=== PATIENT | male | born 1965 | race Caucasian/White ===

== ENCOUNTER → 2017-07-17 09:18 | Outpatient (CLI) | payer OTHER, SELFPAY ==
[2017-07-17 12:29] LABS: Absolute Lymphocyte Count 1.73 X10^3/ul (0.83-4.51); Basophil# 0.03 X10^3/uL; Basophil% 0.5 % (0-1); Eosinophil# 0.22 X10^3/uL; Eosinophils% 3.4 % (0-5); Hematocrit 40.7 % (40-54); Hemoglobin 13.8 g/dl (13.0-16.5); Lymphocyte # 1.73 X10^3/ul (4.0); Lymphocyte % 26.5 % (19-41); Mean Corp Hgb Conc 33.9 g/gl (32-36); Mean Corpuscular Hgb 30.9 pg (27.0-32.0); Mean Corpuscular Volume 91.1 fL (80-94); Monocyte# 0.56 X10^3/uL; Monocyte% 8.6 % (0-10); Neutrophil # 3.99 X10^3/uL (2.7-7.7); Neutrophil % 60.8 % (47-70); Platelet Count 307 K/mm3 (150-450); RBC Distribution Width CV 13.5 % (11.6-14.6); RBC Distribution Width SD 44.3 fl (35.1-43.9); Red Blood Count 4.47 M/mm3 (4.6-6.2); White Blood Count 6.5 K/mm3 (4.4-11.0)
[2017-07-17 12:30] LABS: Color, Urine Yellow (Yellow); Glucose, Dipstick Normal (Normal); Ketone-Dipstick Negative (Negative); Leukocyte Esterase-Dipstick Negative /ul (Negative); Nitrite-Dipstick Negative (Negative); Occult Blood-Urine Negative /ul (Negative); Protein-Dipstick Negative (Negative); Specific Gravity, Urine 1.015 (1.002-1.030); Urine Bilirubin Dipstick Negative (Negative); Urine Clarity Sl. Cloudy (Clear); Urine Urobilinogen Normal (Normal)
[2017-07-17 12:33] LABS: POSITIVE COUNT NO; POSITIVE DIFFERENTIAL NO; POSITIVE MORPHOLOGY NO
[2017-07-17 12:51] LABS: ALB/GLOB Ratio 1.1 RATIO (0.9-2.4); AST(SGOT) 17 U/L (15-37); Alanine Aminotransfer ALT/SGPT 28 U/L (16-61); Albumin, Serum 3.9 g/dL (3.2-5.0); Alkaline Phosphatase 85 U/L (45-117); Anion Gap 10 (5-15); BUN 15 mg/dL (7-18); BUN/Creat Ratio 15.7 RATIO (10-20); Calcium,Total 8.7 mg/dL (8.5-10.1); Chloride 108 mmol/L (98-107); Cholesterol 190 mg/dL (200); Creatinine, Serum 0.96 mg/dL (0.70-1.30); EST Glomerular Filtration Rate 88 mL/min (>60); Est Glom Filt Rate - Afr Amer 107 mL/min (>60); Globulin 3.5 g/dL (2.2-4.2); Glucose 81 mg/dL (74-106); High Density Lipoprotein 57 mg/dL; PSA,Total - Annual Screen 1.09 ng/mL (0.00-4.00); Potassium 3.9 mmol/L (3.5-5.1); Protein, Total 7.4 g/dL (6.4-8.2); Sodium Level 143 mmol/L (136-145); Triglycerides 50 mg/dL; Very Low Density Lipoprotein 10 mg/dL (5-40)
[2017-07-18 09:31] LABS: Vitamin B12 1823 pg/mL (211-911); Vitamin D,25 Hydroxy 30.7 ng/mL (29.95-100.01)
== END ==
PROVIDERS: Family Provider Family Medicine; PCP Family Medicine; Visit Provider Family Medicine
DX: Z00.00 Encounter for general adult medical examination without abnormal findings (principal); Z12.5 Encounter for screening for malignant neoplasm of prostate; E55.9 Vitamin D deficiency, unspecified; E53.8 Deficiency of other specified B group vitamins
CPT/HCPCS: 36415; 80053; 80061; 81002; 82306; 82607; 84153; 85025; G0103

== ENCOUNTER → 2019-09-16 11:11 | Outpatient (CLI) | payer OTHER, SELFPAY ==
[2017-06-20 13:05] VITALS: BMI 32.5
--- NOTE | 2019-09-16 | IMM_PTH ---
PATIENT: PERLA HERNANDEZ Jr. LOC: [facility] U#:[id number] AGE/SX: 59/M ROOM: RE09/16/[address]: Dr. Christopher Sanchez MD : 1965 BED: DIS: SPEC #: [id number] RECD: 09/17/19 12:58 STATUS: ELINOR REQ #: [id number] MARCOS: 09/16/19 00:[address]: Christopher Sanchez DEPT: IMMUNOHISTOCHEMISTRY RECD BY: Dorita Garcia ENTERED: 09/17/19 13:00 SP TYPE: IMMUNO OTHR DR: Dr. Thaddeus Guillaume MD Tissues: A - PROSTATE RIGHT Procedures: P40 (add) 34BE12 (initial) PHYSICIAN & INSTITUTION [place] [address] SPECIMEN INFORMATION: Tissue Source: A - Right prostate, apex, core biopsy Clinical Info: Elevated PSA Specimen Number: [id number] CPT code: 14077, 16204 METHODOLOGY: Deparaffinized sections of prefer/formalin-fixed tissue or PAP/DQ stained slides are incubated with monoclonal/polyclonal antibodies/oligonucleotide probes. Localization is made via biotin free immunoperoxidase method. Appropriate controls are performed and reacted as expected. Results on target cell population are indicated in the following table: RESULTS: ANTIBODY / CLONE RESULT Block A P40 (BC28) negative 34BE12 (34BE12) negative These tests were developed and their performance characteristics determined by [facility]. They may not have been cleared or approved by the U.S. Food and Drug Administration. The FDA has determined that such clearance or approval is not necessary. The above immunohistochemical/dualISH markers are ordered and reviewed by the Pathologist. INTERPRETATION: A. Right prostate, apex, core biopsy: Adenocarcinoma. OCTAVIA:davie 09/18/19
--- NOTE | 2019-09-16 08:00 | PROSBIL_PTH ---
PATIENT: PERLA HERNANDEZ Jr. LOC: [facility] U#:[id number] AGE/SX: 59/M ROOM: RE09/16/[address]: Dr. Christopher Sanchez MD : 1965 BED: DIS: SPEC #: [id number] RECD: 09/16/19 10:40 STATUS: ELINOR HANK #: [id number] MARCOS: 09/16/19 08:[address]: Christopher Sanchez DEPT: SURGICAL PATHOLOGY RECD BY: Chip Bain ENTERED: 09/16/19 11:51 SP TYPE: PROST BX CRYSTAL DR: Dr. Thaddeus Guillaume MD Tissues: A - PROSTATE RIGHT B - PROSTATE RIGHT C - PROSTATE RIGHT D - PROSTATE LEFT E - PROSTATE LEFT F - PROSTATE LEFT Procedures: PROSTATE BX HEADER OPERATION: Prostate biopsy PRE-OP DIAGNOSIS: Elevated PSA TISSUE SUBMITTED: A - Right apex, B - Right mid, C - Right base, D - Left apex, E - Left mid, F - Left base MICROSCOPIC DIAGNOSIS A. Right prostate, apex, core biopsy: Prostatic adenocarcinoma. Bruning grade: 3+3=6 Number of cores involved: 1/1 Proportion of tissue involved: ~5% Perineural invasion: Not identified. Greatest tumor length: 0.1 cm See comment. B. Right prostate, mid, core biopsy: Prostatic tissue, negative for malignancy. C. Right prostate, base, core biopsy: Prostatic tissue, negative for malignancy. D. Left prostate, apex, core biopsy: Prostatic tissue, negative for malignancy. E. Left prostate, mid, core biopsy: Focal high-grade prostatic intraepithelial neoplasia (HGPIN). F. Left prostate, base, core biopsy: Prostatic tissue, negative for malignancy. SJ:davie 09/18/19 COMMENT A. Immunohistochemistry ([id number]) supports the above diagnosis. Case has been reviewed in consultation with Dr. Barcenas who concurs with the above diagnosis. IDC:AM MICROSCOPIC DESCRIPTION Slides are reviewed. GROSS DESCRIPTION A - Received is one container designated prostate, right apex. The specimen consists of one elongated fragment of light marshall-white soft tissue measuring 1.2 cm in length and 0.1 cm in diameter. The specimen is totally submitted in one cassette. B - Received is one container designated prostate, right mid. The specimen consists of two elongated fragments of light marshall-white soft tissue measuring 1 and 1.4 cm in length and 0.1 cm in diameter. The specimen is totally submitted in one cassette. C - Received is one container designated prostate, right base. The specimen consists of two elongated fragments of light marshall-white soft tissue measuring 1 and 1.4 cm in length and 0.1 cm in diameter. The specimen is totally submitted in one cassette. D - Received is one container designated prostate, left apex. The specimen consists of one elongated fragment of light marshall-white soft tissue measuring 1.2 cm in length and 0.1 cm in diameter. The specimen is totally submitted in one cassette. E - Received is one container designated prostate, left mid. The specimen consists of two elongated fragments of light marshall-white soft tissue measuring 1 and 1.4 cm in length and 0.1 cm in diameter. The specimen is totally submitted in one cassette. F - Received is one container designated prostate, left base. The specimen consists of two elongated fragments of light marshall-white soft tissue measuring 1 and 1.2 cm in length and 0.1 cm in diameter. The specimen is totally submitted in one cassette. / SJ:rg 09/16/19 TC:0 CPT: 79315 x6
== END ==
PROVIDERS: PCP Family Medicine; Referring Provider Urology; Visit Provider Urology
DX: R97.20 Elevated prostate specific antigen [PSA] (principal)
CPT/HCPCS: 88305; 88341; 88342; G0416

== ENCOUNTER 2019-10-29 05:50 | Day surgery (SDC) | payer OTHER, SELFPAY ==
--- NOTE | 2019-10-23 15:46 | EKG12_ITS ---
Test Reason : PREOP Blood Pressure : / mmHG Vent. Rate : 061 BPM Atrial Rate : 061 BPM P-R Int : 164 ms QRS Dur : 092 ms QT Int : 416 ms P-R-T Axes : 054 035 027 degrees QTc Int : 418 ms Normal sinus rhythm Normal ECG Confirmed by JESS SMALL, DEE ([id number]), market editor OSVALDO BREWER ([id number]) on 10/27/2019 9:31:19 AM Referred By: Christopher Sanchez Confirmed By:MANI MERCADO MD
[2019-10-23 16:22] LABS: Hematocrit 40.8 % (40-54); Hemoglobin 13.4 g/dL (13.0-16.5); Mean Corp Hgb Conc 32.8 g/dL (32-36); Mean Corpuscular Hgb 30.6 pg (27.0-32.0); Mean Corpuscular Volume 93.2 fL (80-94); Mean Platelet Vol. 10.3 fl (6.2-12.0); Platelet Count 317 K/mm3 (150-450); RBC Distribution Width CV 13.2 % (11.6-14.6); RBC Distribution Width SD 45.6 fl (35.1-43.9); Red Blood Count 4.38 M/mm3 (4.6-6.2); White Blood Count 6.6 K/mm3 (4.4-11.0)
[2019-10-29] VITALS (9 sets, daily range): BP systolic 110–148; BP diastolic 70–99; PULSE 60–86; RESP 16–18; TEMP 36.1–37.5; O2SAT 92–97; BMI 33.1
--- NOTE | 2019-10-29 | IMM_PTH ---
PATIENT: PERLA HERNANDEZ Jr. [place] [facility] [place][id number] AGE/SX: 53/M ROOM: RE10/29/[address]: Dr. Christopher Sanchez MD : 1965 BED: DIS: 10/30/2019 SPEC #: [id number] RECD: 10/31/19 12:35 STATUS: ELINOR REQ #: [id number] MARCOS: 10/29/19 00:[address]: Christopher Sanchez DEPT: IMMUNOHISTOCHEMISTRY RECD BY: Dorita Garcia ENTERED: 10/31/19 12:36 SP TYPE: IMMUNO OTHR DR: Dr. Thaddeus Guillaume MD Tissues: Prostate, NOS Procedures: 34BE12 (add) P40 (add) 34BE12 (initial) PHYSICIAN & INSTITUTION [place] [address] SPECIMEN INFORMATION: Tissue Source: Prostate Clinical Info: Prostate cancer Specimen Number: [id number] #11, 14 & 19 CPT code: 51897, 17144 x5 METHODOLOGY: Deparaffinized sections of prefer/formalin-fixed tissue or PAP/DQ stained slides are incubated with monoclonal/polyclonal antibodies/oligonucleotide probes. Localization is made via biotin free immunoperoxidase method. Appropriate controls are performed and reacted as expected. Results on target cell population are indicated in the following table: RESULTS: ANTIBODY / CLONE RESULT Block 11 34BE12 (34BE12) positive P40 (BC28) positive Block 14 34BE12 (34BE12) negative P40 (BC28) negative Block 19 34BE12 (34BE12) negative P40 (BC28) negative These tests were developed and their performance characteristics determined by [facility]. They may not have been cleared or approved by the U.S. Food and Drug Administration. The FDA has determined that such clearance or approval is not necessary. The above immunohistochemical/dualISH markers are ordered and reviewed by the Pathologist. INTERPRETATION: Prostate, prostatectomy: Adenocarcinoma. AM:davie 11/03/19 Case has been reviewed in consultation with Dr. Gustafson who concurs with the above diagnosis. IDC:OCTAVIA
[2019-10-29] MEDS: Lactated Ringers 1,000 ML 100 ML IV ×2 (07:07→17:11)
[2019-10-29] MEDS: Lactated Ringers 1,000 ML 15 ML IV (07:10)
--- NOTE | 2019-10-29 07:19 | HP.PCM_ITS ---
History of Present Illness Date of Admission: 10/29/19 Chief Complaint: Prostate cancer The patient is a 53 year old male with a history of prostate cancer [place] 6 disease given his young age and long life expectancy he is elected to undergo a radical prostatectomy with nerve sparing. Past Medical History Allergies bee venom protein (honey bee) Allergy (Severe, Verified 10/20/19 15:03) Anaphylaxis Home Medications: Ambulatory Orders Medication Instructions Recorded NK 10/20/19 Surgical History: no surgical history Smoking Status: Former smoker Tobacco Use: Non-smoker Review of Systems Constitutional: Denies: Chills, Fever, Weight Change HEENT: Denies: Head Aches, Sinus Congestion, Sinus Drainage Cardiovascular: Denies: Chest Pain, Palpitations Respiratory: Denies: Cough, Shortness of breath at rest, Sputum production Gastrointestinal: Denies: Abdominal Pain, Nausea, Vomiting Genitourinary: Denies: Dysuria Musculoskeletal: Denies: Joint Pain, Joint Tenderness Skin: Denies: Rash, Wounds Neurological: Denies: Numbness, Tingling, Focal weakness Psychiatric: Denies: Anxiety, Depression, Homicidal Ideations, Suicidal Ideations Hematologic/ Lymphatic: Denies: Easy Bruising, Easy Bleeding VTE Information - Inpt Only VTE Present on Admission: No - Physical Exam Vitals/I&O's: Vital Signs Temp Pulse Resp BP Pulse Ox 99.5 F H 60 16 148/81 H 94 10/29/19 06:24 10/29/19 06:24 10/29/19 06:24 10/29/19 06:24 10/29/19 06:24 Oxygen Delivery Method Room Air Weight: 98.8 kg Body Mass Index (BMI) 33.1 General: Alert, Oriented x3, Cooperative HEENT: Atraumatic, PERRLA, EOMI, Normocephalic Neck: Supple, No JVD, Negative Carotid Bruits Lungs: Clear to auscultation, Normal air movement Cardiovascular: Regular rate, No murmurs Abdomen: Bowel Sounds Present, Soft, Non Tender Extremities: No edema, Capillary Refill Less than 3 Seconds Skin: No rashes, No breakdown Musculoskeletal: No Tenderness to Palpation of Joints or Extremities Neurological: Cranial nerves II-XII grossly intact Psych/Mental Status: Normal Affect, Appropriate Current Medications Cefazolin Sodium 2 gm/ Sodium (Chloride) 110 mls @ 150 mls/hr IV PREOP ONE Stop: 10/29/19 08:13 Lactated Ringer's () 1,000 mls @ 100 mls/hr IV .Q10H LOPEZ Last Admin: 10/29/19 07:07 Dose: 100 mls/hr Documented by: Lactated Ringer's () 1,000 mls @ 15 mls/hr IV .Q48H LOPEZ Assessment/Plan All Active Problems (Last Reviewed 06/20/17 @ 13:07 by Jennifer Covarrubias) Influenza B (Acute) Plan to proceed with radical prostatectomy bilateral nerve sparing.
[2019-10-29] MEDS: Cefazolin 2 GM in 0.9% Normal Saline 100 ML IV (07:22)
--- NOTE | 2019-10-29 07:23 | DCINST_ITS ---
Discharge Diet: Light diet - advance as tolerated Discharge Activity: May Not Drive, May not drive while taking narcotic pain medications. May resume sexual activity in: 6 weeks Call your doctor if your incision/area has: Continuous Slow Oozing, Sudden Increased Bleeding, Increased Pain/ Swelling, Increased Redness, Foul Smelling Discharge, Swelling at the incision site Call your doctor if you observe: Fever of 101 or Higher Suture Line Care: Avoid Pulling/Pushing, Avoid Pinching/Bending Catheter: Gabriel to leg bag, Gabriel to large bag Drain: [place] Allergies/Adverse Reactions: Allergies bee venom protein (honey bee) Allergy (Severe, Verified 10/20/19 15:03) Anaphylaxis Medications to take at Discharge Ciprofloxacin [Cipro] 500 mg PO BID #20 tab 10/29/19 Docusate Sodium [Colace] 100 mg PO BID #20 cap 10/29/19 Hydrocodone/Acetaminophen [[place] 5-325 Tablet] 1 each PO Q4H PRN PRN 5 Days #14 tablet 10/29/19 The following prescriptions were given: Ciprofloxacin [Cipro] 500 mg PO BID #20 tab Transmission Status: Pending to [address] Docusate Sodium [Colace] 100 mg PO BID #20 cap Transmission Status: Pending to [address] Hydrocodone/Acetaminophen [[place] 5-325 Tablet] 1 each PO Q4H PRN PRN 5 Days #14 tablet PRN Reason: Pain Score 1-10/10 Transmission Status: Received by [address] Primary Care Physician: Thaddeus Guillaume MD [Primary Care Provider] - Test Results: Test results from this visit will be discussed in further detail at your follow- up appointment, if applicable. Please Follow Up With: Christopher Sanchez MD When: in 2 weeks, please call to make an appointment. Proposed Discharge Date: 10/30/19
--- NOTE | 2019-10-29 07:30 | PROST_PTH ---
PATIENT: PERLA HERNANDEZ Jr. [place] [facility] [place][id number] AGE/SX: 53/M ROOM: RE10/29/[address]: Dr. Christopher Sanchez MD : 1965 BED: DIS: 10/30/2019 SPEC #: [id number] RECD: 10/29/19 11:17 STATUS: ELINOR REKelvin #: [id number] MARCOS: 10/29/19 07:[address]: Christopher Sanchez DEPT: SURGICAL PATHOLOGY RECD BY: Chip Bain ENTERED: 10/29/19 11:29 SP TYPE: PROSTATE OTHR DR: Dr. Thaddeus Guillaume MD Tissues: Prostate, NOS Procedures: Surgery Specimen Level HEADER OPERATION: Lap robotic prostatectomy PRE-OP DIAGNOSIS: Prostate cancer TISSUE SUBMITTED: Prostate MICROSCOPIC DIAGNOSIS Prostate, radical prostatectomy: Adenocarcinoma. See cancer checklist below. AM:davie 11/03/19 COMMENT PROSTATE CANCER (RADICAL) SUMMARY: Procedure: Radical Prostatectomy Prostate Size: Weight: 44 gm Size: 4 x 3.5 x 3 cm Histologic type: Adenocarcinoma Histologic grade: 6 (3+3) Percent of Pattern 4: 0 Percent of Pattern 5: 0 Intraductal Carcinoma: Not identified Tumor Quantitation: 6 x 3 x 2 mm (from glass slides) Extraprostatic Extension: Not identified Urinary Bladder Neck Invasion: Not present Seminal Vesicle Invasion: Not present Lymphvascular Invasion: Not identified Perineural Invasion: Not identified Margins: Free of carcinoma Regional Lymph Nodes: No lymph nodes submitted. Treatment Effect: Unknown Additional Pathologic Findings: Benign nodular hyperplasia and minimal chronic inflammation. PATHOLOGIC STAGE: pT2 Nx Mx The above summary is in compliance with [employer] (CAP) Cancer Protocols Checklist and [place] Joint Committee on Cancer (AJCC), Staging Manual, 8th Ed. Immunohistochemistry ([id number]) supports the above diagnosis. Case has been reviewed in consultation with Dr. Gustafson who concurs with the above diagnosis. IDC:SJ MICROSCOPIC DESCRIPTION Slides are reviewed. GROSS DESCRIPTION Received in fixative is one container labeled with the patient's name and designated prostate. The specimen consists of a radical prostatectomy specimen consisting of prostate including bilateral seminal vesicles and vas deferens. The entire specimen weighs 44 gm. The prostate measures 3 cm craniocaudally, 4 cm transversely and 3.5 cm anterior-posteriorly. The right seminal vesicle measures 2.5 x 2 x 0.8 cm and right vas deferens measure 2.5 cm in length and 0.5 cm in diameter. The left seminal vesicle measures 2.5 x 2 x 0.8 cm and left vas deferens measure 2.5 cm in length and 0.5 cm in diameter. The specimen is inked as follows: anterior surface - yellow, posterior surface - black, right lateral surface - blue, left lateral surface - green. Bilateral seminal vesicles and vas deferens are inked as follows: posterior surface - black, anterior surface right seminal vesicle and vas deferens - blue, anterior surface left seminal vesicle and vas deferens - green. Sections do not reveal any obvious mass lesion. [employer] sections are submitted in 20 cassettes as follows: 1 - right seminal vesicle and vas deferens, 2 - left seminal vesicle and vas deferens, 3 - apical (urethral) margin, enface, 4 - bladder face margin, enface, 5 - most basal portion of the prostate, 6-10 - apical portion of prostate, 1114 - middle portion prostate, 15-20 - basal portion prostate. About 90% of the prostate is submitted. / OCTAVIA:davie 10/31/19 TC:0 CPT: 60989
[2019-10-29] MEDS: Bupivacaine Mpf 0.5% 30 ML VIAL (08:00)
--- NOTE | 2019-10-29 11:02 | PCM.OPRPT ---
Report of Operation Date of Procedure: 10/29/19 Pre-Operative Diagnosis: Prostate cancer Post-Operative Diagnosis: Same Surgery/Procedure Performed:: Radical prostatectomy bilateral nerve sparing Description of Surgical Findings:: 53-year-old male with [place] 6 prostate cancer presents for treatment of his cancer with radical prostatectomy, patient was taken back to the operating room to smooth induction of general anesthesia was placed upon the table, the abdomen shaved prepped and draped in usual sterile fashion placed a Gabriel catheter into the bladder. I then docked the ports for the robot. Started dissection posterior to the bladder dissected out the left seminal vesicle left vas deferens and the right seminal vesicle right vas deferens dissected posterior to the prostate and the bladder above the Denonvilliers' fascia and then pulled out of the pelvis we drop the bladder created the space of Retzius I then freed up the endopelvic fascia in the right light left side of the prostate we placed a stitch in the dorsal vein complex and then pulled back to the prostate and bladder junction and dissected between the bladder and the bladder neck junction down to the catheter and then the catheter was pulled back and then I dissected between the prostate and the bladder posteriorly until we reached the seminal vesicles and vas deferens. The prostate was placed on lateral traction I then released the neurovascular bundle in the right side of the prostate came through the clips with the pedicle and release the neurovascular bundle all the way up to the apex and the right side very nicely went to the left side we need release neurovascular bundle in the left side of the prostate came to the pedicle with clips and release of vascular bundle all the way up to the left side and then came across the dorsal vein complex dissected the urethra circumferentially and then transected through the urethra the prostate was removed put an Endo Catch bag I then performed an anastomosis between the bladder neck which was normal quite small opening into the urethra over a catheter once this was completed we flushed the catheter we extracted the prostate through the umbilical site and closed the 1012 trocar with a Eddie Yañez stitch patient's anesthetic is being reversed it was a nice complete dissection and removal of the prostate with good nerve and the nerve sparing on both the left and right sides of the prostate. Patient is currently being reversed from anesthesia. Type of Anesthesia:: General Drains: Gabriel. - Admit VTE Documentation VTE Present on Admission: No VTE Mechan Device Prophylaxis: SCD's
[2019-10-29] MEDS: Ondansetron 4 MG/2 ML Vial IV (13:55)
[2019-10-29] MEDS: Ciprofloxacin 400 MG/200 ML BAG 200 MG IV (14:00)
[2019-10-29] MEDS: Ketorolac 15 MG/ML Vial IV ×2 (15:12→21:31)
[2019-10-29] MEDS: Docusate Sodium 100 MG Capsule 200 MG PO (21:31)
[2019-10-30] MEDS: Ciprofloxacin 400 MG/200 ML BAG 200 MG IV (02:43)
[2019-10-30 02:44] VITALS: BP 111/68; PULSE 61; RESP 16; TEMP 36.7; O2SAT 97
[2019-10-30] MEDS: Ketorolac 15 MG/ML Vial IV ×2 (03:07→09:52)
[2019-10-30] MEDS: Lactated Ringers 1,000 ML 100 ML IV (03:08)
[2019-10-30 08:45] VITALS: BP 122/77; PULSE 65; RESP 18; TEMP 37.1; O2SAT 98
[2019-10-30] MEDS: Docusate Sodium 100 MG Capsule 200 MG PO (09:51)
[2019-10-30] MEDS: 0.9% Saline Lock 10 ML Syringe IV (09:53)
--- NOTE | 2019-10-30 11:23 | PHA.DC.MC ---
Pharmacy Service has performed discharge medication reconciliation and counseling for this patient. 1. CIPROFLOXACIN 500MG PO BID x 10 DAYS 2. DOCUSATE 100MG PO BID x 10 DAYS 3. HYDROCODONE/ACETAMINOPHEN 5/325MG 1T PO Q4H PRN PAIN 1-10 The patient's discharge medication list was reviewed for discrepancies and discrepancies were resolved. Home Medications Ciprofloxacin [Cipro] 500 mg PO BID #20 tab 10/29/19 Docusate Sodium [Colace] 100 mg PO BID #20 cap 10/29/19 Hydrocodone/Acetaminophen [[facility] 5-325 Tablet] 1 ea PO Q4H PRN PRN 5 Days #14 tab 10/29/19 The patient was counseled on the following discharge medications and changes in medications for homegoing were reviewed. The Reason for Use, instructions for use, and potential side effects were reviewed for all new medications. The patient's questions regarding all of their medications were answered. The patient was able to verbally demonstrate an understanding of their discharge medications. Patient counseled by pharmacy technician per diem, Vilma.
[2019-10-30 11:41] VITALS: BP 128/70; PULSE 60; RESP 18; TEMP 36.8; O2SAT 98
== END 2019-10-30 11:47 | disposition home or self-care (01) ==
LOC: SDC 05:51 → AC 05:51 → MS3 10-30 08:01
PROVIDERS: Anesthesiology; PCP Family Medicine; Referring Provider Urology; Visit Provider Urology
PROC: 0VT04ZZ Resection of Prostate, Percutaneous Endoscopic Approach (ICD-10-PCS; CPT 55866; principal; 2019-10-29 07:10)
DX: C61 Malignant neoplasm of prostate (principal); Z11.59 Encounter for screening for other viral diseases; Z87.891 Personal history of nicotine dependence
CPT/HCPCS: 00865; 55866; 85027; 86850; 86900; 86901; 87635; 88309; 88341; 88342; 93005; 94799; 99251; J7120; A4216; G0463; J0744; J2405; U0003

== ENCOUNTER → 2020-01-30 06:58 | Outpatient (CLI) | payer OTHER, SELFPAY ==
[2019-10-29 13:07] VITALS: BMI 33.1
[2020-01-30 09:27] LABS: PSA,Total- Diagnostic 0.03 ng/mL (0.0-4.0)
== END ==
PROVIDERS: PCP Family Medicine; Referring Provider Urology; Visit Provider Urology
DX: C61 Malignant neoplasm of prostate (principal)
CPT/HCPCS: 36415; 84153

== ENCOUNTER → 2020-05-07 15:29 | Outpatient (CLI) | payer OTHER, SELFPAY ==
[2019-10-29 13:07] VITALS: BMI 33.1
[2020-05-07 16:58] LABS: PSA,Total- Diagnostic 0.02 ng/mL (0.0-4.0)
== END ==
PROVIDERS: PCP Family Medicine; Visit Provider Urology
DX: C61 Malignant neoplasm of prostate (principal)
CPT/HCPCS: 36415; 84153

== ENCOUNTER → 2020-12-09 14:49 | Outpatient (CLI) | payer OTHER, SELFPAY ==
[2020-12-09 17:01] LABS: PSA,Total- Diagnostic 0.02 ng/mL (0.0-4.0)
== END ==
PROVIDERS: PCP Family Medicine; Visit Provider Urology
DX: C61 Malignant neoplasm of prostate (principal)
CPT/HCPCS: 36415; 84153

== ENCOUNTER 2021-06-11 09:51 | Outpatient (CLI) | payer OTHER, SELFPAY ==
[2021-06-11 11:21] LABS: PSA,Total- Diagnostic 0.02 ng/mL (0.0-4.0)
== END 2021-06-11 23:59 | disposition home or self-care (01) ==
LOC: LAB 09:52
PROVIDERS: PCP Family Medicine; Visit Provider Urology
DX: C61 Malignant neoplasm of prostate (principal)
CPT/HCPCS: 36415; 84153

== ENCOUNTER → 2021-12-17 | Outpatient (CLI) | payer OTHER, SELFPAY ==
[2021-12-17 09:46] LABS: PSA,Total- Diagnostic 0.02 ng/mL (0.0-4.0)
== END | disposition home or self-care (01) ==
LOC: LAB 08:35
PROVIDERS: PCP Family Medicine; Referring Provider Urology; Visit Provider Urology
DX: C61 Malignant neoplasm of prostate (principal)
CPT/HCPCS: 36415; 84153

== ENCOUNTER → 2022-06-16 | Outpatient (CLI) | payer OTHER, SELFPAY ==
[2022-06-16 11:13] LABS: PSA,Total- Diagnostic 0.05 ng/mL (0.0-4.0)
== END | disposition home or self-care (01) ==
LOC: LAB 10:05
PROVIDERS: PCP Family Medicine; Referring Provider Registered Nurse; Visit Provider Registered Nurse
DX: C61 Malignant neoplasm of prostate (principal)
CPT/HCPCS: 36415; 84153

== ENCOUNTER → 2023-03-28 | Outpatient (CLI) | payer OTHER, SELFPAY ==
[2023-03-28 17:09] LABS: PSA,Total- Diagnostic 0.03 ng/mL (0.0-4.0)
== END | disposition home or self-care (01) ==
PROVIDERS: PCP Family Medicine; Referring Provider Urology; Visit Provider Urology
DX: C61 Malignant neoplasm of prostate (principal)
CPT/HCPCS: 36415; 84153

== ENCOUNTER → 2023-12-08 | Outpatient (CLI) | payer OTHER, SELFPAY ==
[2023-12-08 10:19] LABS: PSA,Total- Diagnostic 0.05 ng/mL (0.0-4.0)
== END | disposition home or self-care (01) ==
LOC: LAB 09:28
PROVIDERS: PCP Family Medicine; Referring Provider Urology; Visit Provider Urology
DX: C61 Malignant neoplasm of prostate (principal)
CPT/HCPCS: 36415; 84153

== ENCOUNTER → 2024-09-08 | Outpatient (CLI) | payer OTHER, SELFPAY ==
[2024-09-08 12:39] LABS: PSA,Total- Diagnostic 0.03 ng/mL (0.00-4.00)
== END | disposition home or self-care (01) ==
LOC: LAB 10:47
PROVIDERS: PCP Family Medicine; Referring Provider Nurse Practitioner; Visit Provider Nurse Practitioner
DX: C61 Malignant neoplasm of prostate (principal)
CPT/HCPCS: 36415; 84153